=== PATIENT | male | born 1985 | race Caucasian/White ===

== ENCOUNTER 2019-05-24 15:22 | Inpatient (IN) | payer SELFPAY ==
[~2019-05-24] VITALS: Ht 182.9 cm; Wt 91.0 kg
[2019-05-24 15:47] VITALS: Ht 182.9 cm; Wt 91.0 kg
[2019-05-24 16:59] LABS: RED CELL DISTRIBUTION WIDTH 14.1 % (11.5-14.5)
[2019-05-24 17:05] LABS: PLATELET COUNT 114 x10^3mcL (130-400)
--- NOTE | 2019-05-24 17:07 | NUR ---
PT PRESENTS TO ED WITH C/O ANXIETY, N/V/D, AND ETOH. PT STS HE HAS FELT "SUPER ANXIOUS" ALL DAY TODAY AND REPORTS HAVING A HISTORY OF ANXIETY. PT REPORTS HAVING EPISODES OF N/V/D X1WK, MORESO EPISODES OF DIARRHEA OVER THE LAST COUPLE DAYS. PT STS HE HAS BEEN UNABLE TO EAT NORMAL DUE TO NAUSEA. PT STS HE IS AN ALCOHOLIC. PT REPORTS DRINKING A 6 PACK OF BUD LIGHTS TODAY AND STS HIS LAST DRINK WAS ABOUT AN HOUR TRENCH [employer]OVEL [employer]. PT LAYING ON GURNEY IN POSITION OF COMFORT, AAOX4, RESP E/U, ON FULL CM, NO ACUTE DISTRESS NOTED AT THIS TIME.
[2019-05-24 17:15] LABS: CALCIUM 8.9 mg/dL (8.5-10.1); CARBON DIOXIDE 20.6 mmol/L (21-32); CHLORIDE SERUM 103 mmol/L (98-107); CREATININE SERUM 0.6 mg/dL (0.7-1.3); GFR1 > 60 mL/min; GLUCOSE SERUM 111 mg/dL (74-106); POTASSIUM SERUM 3.6 mmol/L (3.5-5.1); SODIUM SERUM 140 mmol/L (136-145)
[2019-05-24 17:18] LABS: ALBUMIN 3.5 g/dL (3.4-5.0); ALKALINE PHOSPHATASE 113 U/L (46-116); ALT/SGPT 90 U/L (16-63); AMYLASE 79 U/L (25-115); AST/SGOT 295 U/L (15-37); BILIRUBIN TOTAL 2.89 mg/dL (0.20-1.00); LIPASE 526 IU/L (73-393); MAGNESIUM 2.4 mg/dL (1.8-2.4)
[2019-05-24 17:20] LABS: TOTAL PROTEIN, SERUM 9.2 g/dL (6.4-8.2)
--- NOTE | 2019-05-24 18:04 | NUR ---
PT AAOX4, RESP E/U, NO ACUTE DISTRESS NOTED AT THIS TIME. PT MOTHER AT BEDSIDE.
--- NOTE | 2019-05-24 18:30 | NUR ---
PT OFF FLOOR TAKEN FOR CT SCAN
--- NOTE | 2019-05-24 19:04 | NUR ---
RECEIVED REPORT FROM ORTIZ ABREU FOR FURTHER CARE OF PATIENT.
--- NOTE | 2019-05-24 19:04 | NUR ---
REPORT GIVEN TO MELECIO LUTZ RN TO ASSUME CARE OF PT.
--- NOTE | 2019-05-24 19:09 | NUR ---
PATIENT LYING ON GURNEY- MOM BEDSIDE, NO SS OF DISTRESS NOTED. WILL CONTINUE TO MONITOR.
--- NOTE | 2019-05-24 20:24 | NUR ---
DR CALERO BEDSIDE PROVIDING DX TO PATIENT.
[2019-05-24 21:00] LABS: microscopic required? NO
[2019-05-24 21:03] LABS: UA SPECIFIC GRAVITY <=1.005 (1.005-1.035); urine erythrocyte NEGATIVE (NEGATIVE)
[2019-05-24 21:13] LABS: AMPHETAMINE QUAL UR NONE DETECTED (See below)
[2019-05-24 21:21] LABS: PHOSPHOROUS 3.4 mg/dL (2.5-4.9)
[2019-05-24 21:23] LABS: CHOLESTEROL/HDL RATIO 8.5
[2019-05-24 21:31] LABS: T3 TOTAL 0.96 ng/mL
[2019-05-24 21:52] LABS: FREE T4 1.1 ng/dL (0.76-1.46); FREE THYROXINE INDEX 2.5 ug/dL (1.4-4.5); T4(THYROXINE) 7.7 ug/dL (4.7-13.3)
--- NOTE | 2019-05-24 22:24 | NUR ---
PROVIDED REPORT TO ORTIZ PERALTA FOR CONTINUED CARE OF PATIENT IN ROOM 232B
--- NOTE | 2019-05-24 22:32 | NUR ---
U/S TECH IN ROOM
--- NOTE | 2019-05-24 22:33 | NUR ---
INPATIENT ROOM CHANGED TO 24OB
--- NOTE | 2019-05-24 23:05 | NUR ---
RECEIVED PT FROM ED. PT AOX4. SPEECH CLEAR, DENIES NASCIMENTO/DIZZINESS. MED SURG PT, DENIES CP/PRESSURE. DENIES SOB/DIFFICULTY BREATHING, ON RA. IV TO LFA, INTACT AND PATENT. ORIENTED PT TO ROOM. CALL LIGHT WITHIN REACH. BED IN LOWEST POSITION. WILL CONTINUE TO MONITOR.
[2019-05-24 23:09] VITALS: BP 134/91
[2019-05-25 05:32] VITALS: BP 138/84
[2019-05-25 06:37] LABS: RED CELL DISTRIBUTION WIDTH 13.9 % (11.5-14.5)
[2019-05-25 06:45] LABS: CARBON DIOXIDE 22.3 mmol/L (21-32); CHLORIDE SERUM 106 mmol/L (98-107); CREATININE SERUM 0.6 mg/dL (0.7-1.3); GFR1 > 60 mL/min; GLUCOSE SERUM 97 mg/dL (74-106); MAGNESIUM 2.5 mg/dL (1.8-2.4); PHOSPHOROUS 2.8 mg/dL (2.5-4.9); POTASSIUM SERUM 3.7 mmol/L (3.5-5.1); SODIUM SERUM 141 mmol/L (136-145)
[2019-05-25 07:08] LABS: PLATELET COUNT 83 x10^3mcL (130-400)
--- NOTE | 2019-05-25 07:13 | NUR ---
RECEIVED PT FROM SHIFT NURSE A/OX4 RESTING IN BED. NO C/O OF NAUSEA OR VOMITING. IV INTACT AND PATENT. BED IN LOW POSITION. CALL LIGHT WITHIN REACH. WILL CONTINUE TO MONITOR.
--- NOTE | 2019-05-25 07:32 | NUR ---
RECEIVED CALL FROM LAB WBC 3.7. PAGED DR. SAUNDERS. AWAITING CALL BACK.
[2019-05-25 08:43] VITALS: BP 144/96
--- NOTE | 2019-05-25 09:00 | NUR ---
RECEIVED CALL BACK FROM DR. SAUNDERS. NO NEW ORDERS GIVEN. WILL CONTINUE TO MONITOR.
--- NOTE | 2019-05-25 09:30 | NUR ---
PT TEMP 100.5. GAVE TYLENOL ORDERED. WILL CONTINUE TO MONITOR.
--- NOTE | 2019-05-25 10:00 | NUR ---
RECHECKED TEMP 98.6. WILL CONTINUE TO MONITOR.
--- NOTE | 2019-05-25 10:05 | NUR ---
PT ASLEEP BUT AROUSABLE. NO ACUTE DISTRESS NOTED. WILL CONTINUE TO MONITOR.
--- NOTE | 2019-05-25 12:17 | NUR ---
PT LYING IN BED WATCHING TV. NO C/O OF PAIN OR DISCOMFORT. CALL LIGHT WITHIN REACH. WILL CONTINUE TO MONITOR.
[2019-05-25 12:23] LABS: ALKALINE PHOSPHATASE 102 U/L (46-116); ALT/SGPT 75 U/L (16-63); AST/SGOT 226 U/L (15-37); BILIRUBIN TOTAL 3.27 mg/dL (0.20-1.00); CALCIUM 8.3 mg/dL (8.5-10.1); CARBON DIOXIDE 26.1 mmol/L (21-32); CHLORIDE SERUM 106 mmol/L (98-107); CREATININE SERUM 0.5 mg/dL (0.7-1.3); GFR1 > 60 mL/min; GLUCOSE SERUM 99 mg/dL (74-106); POTASSIUM SERUM 3.7 mmol/L (3.5-5.1); SODIUM SERUM 141 mmol/L (136-145)
[2019-05-25 12:33] LABS: ALBUMIN 3.3 g/dL (3.4-5.0); TOTAL PROTEIN, SERUM 8.3 g/dL (6.4-8.2)
--- NOTE | 2019-05-25 13:02 | NUR ---
Discount pharmacy card and list to low cost medical clinics given to patient by Luzmaria.
--- NOTE | 2019-05-25 14:57 | NUR ---
PT RESTING IN BED. CALL LIGHT WITHIN REACH. WILL CONTINUE TO MONITOR.
[2019-05-25 16:17] VITALS: BP 138/94
--- NOTE | 2019-05-25 18:11 | NUR ---
PT IN BED WATCHING TV. DENIES ANY NAUSEA OR VOMITING. IV INTACT AND PATENT. BED IN LOW POSITION. CALL LIGHT WITHIN REACH. WILL BE ENDORSED.
--- NOTE | 2019-05-25 20:00 | NUR ---
ALL PM MEDS,WILL PREPARE.
--- NOTE | 2019-05-25 20:02 | NUR ---
SHIFT REASSESSMENT DONE.PATIENT ALERT AND ORIENTED.MAKE NEEDS KNOWN TO STAFF.MOVING ALL EXT WELL.IVF INFUSING NS AT 150 CC/ HOUR.MEDSURG PATIENT.BRP.CALL LIGHT IN REACH.
[2019-05-25 20:56] VITALS: BP 140/95
--- NOTE | 2019-05-25 22:00 | NUR ---
ALL PM MEDS GIVEN,SWALLOWS WELL.IVF FOR HYDRATION.LOW GRADE FEVER,COOLOMG MEASURES.BRP.NO BM.
--- NOTE | 2019-05-26 04:00 | NUR ---
SLEEPING WELL DURING THE NIGHT.
--- NOTE | 2019-05-26 05:59 | NUR ---
I AND O MEASURED.IVF INFUSING,NEW BAG.IV SITE GOOD.WILL ENDORSE TO NEXT SHIFT.
[2019-05-26 06:06] VITALS: BP 130/85
[2019-05-26 06:25] LABS: BASOPHIL % 0.9 % (0-2)
[2019-05-26 06:26] LABS: AMYLASE 78 U/L (25-115); CALCIUM 8.9 mg/dL (8.5-10.1); CARBON DIOXIDE 22.8 mmol/L (21-32); CHLORIDE SERUM 105 mmol/L (98-107); CREATININE SERUM 0.6 mg/dL (0.7-1.3); GFR1 > 60 mL/min; GLUCOSE SERUM 98 mg/dL (74-106); LIPASE 995 IU/L (73-393); MAGNESIUM 2.1 mg/dL (1.8-2.4); PHOSPHOROUS 2.9 mg/dL (2.5-4.9); POTASSIUM SERUM 3.6 mmol/L (3.5-5.1); SODIUM SERUM 142 mmol/L (136-145)
[2019-05-26 06:44] LABS: PLATELET COUNT 90 x10^3mcL (130-400)
--- NOTE | 2019-05-26 07:50 | NUR ---
RC'D PT RESTING IN BED WITH NO APPARENT SIGNS OF DISTRESS. A/A/O/X4, SPEECH CLEAR AND APPROPRIATE. DENIES NASCIMENTO/DIZZINESS. SEIZURE PRECAUTIONS IN PLACE. PALP PULSES, NO EDEMA NOTED. RESPIRATIONS EQUAL AND UNLABORED. LUNGS CTA. ON RA, DENIES SOB. ABDOMEN SOFT AND NONTENDER. ACTIVE BS. DENIES N/V. VOIDS FREELY. AMBULATORY. SKIN W/D/I. DENIES PAIN AT THIS TIME. IV PATENT AND INTACT. BED IN LOW POSITION. CALL LIGHT IN REACH. WILL CONTINUE TO MONITOR
--- NOTE | 2019-05-26 08:27 | NUR ---
AM MEDICATIONS GIVEN. PT TOLERATED WELL. RESPIRATIONS EQUAL AND UNLABORED. ON RA, DENIES SOB. PT DENIES PAIN AT THIS TIME. BED IN LOW POSITION. CALL LIGHT IN REACH. WILL CONTINUE TO MONITOR
[2019-05-26 08:59] VITALS: BP 140/96
--- NOTE | 2019-05-26 11:46 | NUR ---
PT RESTING IN BED WITH NO APPARENT SIGNS OF DISTRESS. RESPRIATIONS EQUAL AND UNLABORED. ON RA,D ENIES SOB. PT DENIES PAIN AT THIS TIME. BED IN LOW POSITION. CALL LIGHT IN REACH. WILL CONTINUE TO [facility]
[2019-05-26 17:11] VITALS: BP 148/100
--- NOTE | 2019-05-26 18:09 | NUR ---
PT RESTING IN BED WITH NO APPARENT SIGNS OF DISTRESS. RESPIRATIONS EQUAL AND UNLABORED. ON RA, DENIES SOB. MEDSURG. DENIES CHEST PAIN/PRESSURE. AMBULATORY. SKIN W/D/I. IV PATENT AND INTACT. BED IN LOW POSITION. CALL LIGHT IN REACH. WILL ENDORSE TO [employer] RN
--- NOTE | 2019-05-26 19:25 | NUR ---
REC'D PT FROM DAY NURSE. PT RESTING IN BED. AAOX4, SPEECH CLEAR, FOLLOWS COMMANDS. MED SURG, NO TELE. DENIES RESP DISTRESS OR SOB. BREATHING EVEN/UNLABORED ON RA. NO EDEMA NOTED. ABD SOFT/ROUND. DENIES ABD PAIN, TENDERNESS, OR N/V. REQUESTING FOOD BUT INFORMED OF NPO STATUS. INFORMED WILL WAIT FOR LIPASE TO BE DRAWN IN THE AM THEN SEE IF DIET WILL BE RESUMED. PT VERBALIZED UNDERSTANDING. VOIDING FREELY. AMBULATORY. SKIN INTACT. IV TO LFA PATENT AND INFUSING, SITE WNL. CALL LIGHT WITHIN REACH, BED AT LOWEST POSITION. WILL CONTINUE TO MONITOR.
[2019-05-26 21:16] VITALS: BP 127/88
--- NOTE | 2019-05-27 00:45 | NUR ---
PT RESTING IN BED WITH EYES CLOSED. LAYING ON R SIDE. SNORING. NO SIGNS OF DISTRESS NOTED. BREATHING EVEN/UNLABORED ON RA. CALL LIGHT WITHIN REACH, BED AT LOWEST POSITION. WILL CONTINUE TO MONITOR.
--- NOTE | 2019-05-27 05:31 | NUR ---
PT AWAKE AND RESTING IN BED. UP TO VOID. NO COMPLAINTS AT THIS TIME. DENIES ABD PAIN OR NAUSEA. PT REMAINS NPO. NO SIGNIFICANT CHANGES DURING SHIFT. CALL LIGHT WITHIN REACH, BED AT LOWEST POSITION. WILL ENDORSE TO DAY NURSE.
[2019-05-27 06:08] VITALS: BP 137/91
[2019-05-27 06:30] LABS: BASOPHIL % 0.9 % (0-2); RED CELL DISTRIBUTION WIDTH 14.4 % (11.5-14.5)
[2019-05-27 06:35] LABS: CALCIUM 9.2 mg/dL (8.5-10.1); CHLORIDE SERUM 105 mmol/L (98-107); CREATININE SERUM 0.6 mg/dL (0.7-1.3); GFR1 > 60 mL/min; GLUCOSE SERUM 86 mg/dL (74-106); LIPASE 1072 IU/L (73-393); MAGNESIUM 2.1 mg/dL (1.8-2.4); PHOSPHOROUS 3.5 mg/dL (2.5-4.9); POTASSIUM SERUM 3.6 mmol/L (3.5-5.1); SODIUM SERUM 141 mmol/L (136-145)
[2019-05-27 06:39] LABS: PLATELET COUNT 111 x10^3mcL (130-400)
--- NOTE | 2019-05-27 07:30 | NUR ---
PT ENDORSE TO ME THIS MORNING. LAYING IN BED RESTING. AA/O X4, REMAINS NPO DUE TO INCREASE LIPASE. EDUCATED THE IMPORTANCE OF BEING NPO. PT BREATHING EVEN AND UNLABORED ON RA, NO ACUTE RESP DISTRESS OR SOB NOTED. MEDSURG. DENIES ANY CP OR PRESSURE. BOWEL SOUNDS ACTIVE IN ALL FOUR QUADS, LAST BM 05/26 FORMED PER PT. VOIDS FREELY. AMB. IV TO THE LFA INTACT AND PATENT, INFUSING AT 200ML/HR, NO REDNESS OR SWELLING NOTED. CALL LIGHT IN REACH. WILL CONTINUE TO MONITOR.
--- NOTE | 2019-05-27 10:03 | NUR ---
PT TOLERATED ALL AM MEDS WITH OUT N/V. EDUCATED THE IMPORTANCE OF TAKING VS, PT CONTINUES TO REFUSE AM VITALS, DR. AMTA. WILL CONTINUE TO MONITOR.
[2019-05-27 16:25] VITALS: BP 141/85
--- NOTE | 2019-05-27 16:42 | NUR ---
PT TOLERATED CLEAR LUNCH WELL, NO N/V NOTED. DENIES ANY ABD PAIN OR DISCOMFORT. IV TO THE LFA INTACT AND PATENT INFUSING AT 200ML/HR NO REDNESS OR SWELLING NOTED. WILL CONTINUE TO MONITOR.
--- NOTE | 2019-05-27 16:50 | NUR ---
DR. BARRERA AT BEDSIDE DISCUSSING PLAN.
--- NOTE | 2019-05-27 18:30 | NUR ---
PT TOLERATED 100% OF DINNER, DENIES ANY N/V. FAMILY AT BEDSIDE. DENIES ANY ABD PAIN OR DISCOMFORT. WILL CONTINUE TO MONITOR.
--- NOTE | 2019-05-27 18:40 | NUR ---
NO ACUTE CHANGES AT THIS TIME. NO ACUTE RESP DISTRESS OR SOB NOTED. REMAINS ON CLEARS/ TOLERATING WELL. DENIES ANY ABD PAIN OR DISCOMFORT AT THIS TIME. IV TO THE LFA INTACT AND PATENT INFUSING NS AT 80ML/HR, NO REDNESS OR SWELLING NOTED. WILL ENDORSE TO INCOMING RN.
--- NOTE | 2019-05-27 19:40 | NUR ---
AOX4. MED SURG. LUNGS CLEAR ON RA. PULSES PALPABLE. NO EDEMA. BOWEL SOUNDS ACTIVE. C/O DIARRHEA EPISODE TODAY. DENIES ABD PAIN AT THIS TIME. VOIDS FREELY. AMBULATORY. SKIN INTACT. DENIES ALL OTHER PAIN. IV TO LFA, PATENT AND INFUSING. BED IN LOWEST POSITION, 2 SIDE RAILS UP, CALL LIGHT IN REACH. INSTRUCTED TO CALL FOR ASSISTANCE.
[2019-05-27 20:42] VITALS: BP 141/89
--- NOTE | 2019-05-28 02:09 | NUR ---
RESTING IN BED WITH EYES CLOSED. BREATHING E/U. NO ACUTE DISTRESS NOTED. WILL CONTINUE TO MONITOR.
[2019-05-28 05:42] VITALS: BP 124/79
--- NOTE | 2019-05-28 06:14 | NUR ---
DENIED ABD PAIN OVERNIGHT. NO EVIDENCE OF ETOH WITHDRAWAL. WILL ENDORSE TO ONCOMING RN.
[2019-05-28 06:28] LABS: BASOPHIL % 1.3 % (0-2); PLATELET COUNT 141 x10^3mcL (130-400); RED CELL DISTRIBUTION WIDTH 14.2 % (11.5-14.5)
[2019-05-28 06:44] LABS: ALBUMIN 3.2 g/dL (3.4-5.0); ALKALINE PHOSPHATASE 101 U/L (46-116); ALT/SGPT 50 U/L (16-63); AST/SGOT 112 U/L (15-37); BILIRUBIN TOTAL 2.82 mg/dL (0.20-1.00); CALCIUM 9.6 mg/dL (8.5-10.1); CARBON DIOXIDE 24.3 mmol/L (21-32); CHLORIDE SERUM 104 mmol/L (98-107); CREATININE SERUM 0.6 mg/dL (0.7-1.3); GFR1 > 60 mL/min; GLUCOSE SERUM 97 mg/dL (74-106); MAGNESIUM 2.2 mg/dL (1.8-2.4); PHOSPHOROUS 3.9 mg/dL (2.5-4.9); POTASSIUM SERUM 3.4 mmol/L (3.5-5.1); SODIUM SERUM 140 mmol/L (136-145); TOTAL PROTEIN, SERUM 8.5 g/dL (6.4-8.2)
--- NOTE | 2019-05-28 07:30 | NUR ---
PT ENDORSE TO ME THIS MORNING. LAYING IN BED RESTING. AA/O X4, BREATHING EVEN AND UNLABORAED ON RA, NO ACUTE RESP DISTRESS OR SOB NOTED. MEDSURG. DENIES ANY CP OR PRESSURE. VOIDS FREELY. AMB. NO SIGNS OF ETOH TREMORS NOTED. IV TO LFA INTACT AND PATENT, NO REDNESS OR SWELLING NOTED. CALL LIGHT IN REACH. WILL CONTINE TO MONITOR.
[2019-05-28 08:14] VITALS: BP 130/94
--- NOTE | 2019-05-28 10:00 | NUR ---
PT TOLERATED 100% OF HIS FULL LIQ BF, NO N/V NOTED OR ABD PAIN.
--- NOTE | 2019-05-28 13:45 | NUR ---
PT TOLERATED 100% OF REG LUNCH MEAL, NO N/V NOTED AND DENIES ANY ABD PAIN OR DISCOMFORT.
[2019-05-28 14:48] VITALS: BP 130/94
--- NOTE | 2019-05-28 15:46 | NUR ---
EXPLAINED DISCHARGE INSTRUCTIONS AND FOLLOW UP APPT HE MUST MAKE WITH CLINIC, PT AGREED AND SIGNED ALL DISCHARGE PAPER WORK. REMOVED IV TO THE LFA, TOLERATED REMOVAL WELL, CATHETER TIP INTACT, NO REDNESS OR SWELLING NOTED. PT WILL CALL NURSING STATION WHEN HE IS READY.
--- NOTE | 2019-05-28 16:00 | NUR ---
NAMITA RUVALCABA WALKED PT DOWN TO FRONT OF HOSPITAL, PT RICKY WILL BE DRIVING HIM HOME. PT IS CLEAR ON ALL DISCHARGE INSTRUCTIONS AND THE IMPORTANCE OF NOT CONSUMING ETOH, PT AGREED. PT IS BREATHING EVEN AND UNLABORED ON RA, DENIES ANY ABD DISCOMFORT. PT DISCHARGE.
== END 2019-05-28 15:58 | disposition home or self-care (01) | DRG 432 ==
LOC: ED 15:22 → MU 20:37
PROVIDERS: Emergency Medicine; Internal Medicine; ADMIT Internal Medicine
DX: K70.10 Alcoholic hepatitis without ascites (principal); K85.20 Alcohol induced acute pancreatitis without necrosis or infection; D68.59 Other primary thrombophilia; F17.210 Nicotine dependence, cigarettes, uncomplicated; D69.6 Thrombocytopenia, unspecified; F41.9 Anxiety disorder, unspecified; Y90.9 Presence of alcohol in blood, level not specified; R74.0 Nonspecific elevation of levels of transaminase and lactic acid dehydrogenase [LDH]; F10.10 Alcohol abuse, uncomplicated; E78.5 Hyperlipidemia, unspecified; E66.9 Obesity, unspecified; Z68.27 Body mass index [BMI] 27.0-27.9, adult
CPT/HCPCS: 84439; G0378; G0480; J1885; J1940; J2060; J2405; J3490; J7030; J7120; Q0092